=== PATIENT | female | born 1960 | race Hispanic/Latino ===

== ENCOUNTER 2018-04-05 15:04 | Emergency (ER) | payer BC ==
[2018-04-05 15:09] VITALS: RESP 16; TEMP 98.1; O2SAT 99
[2018-04-05] MEDS ORDERED: Oxycodone/Acetaminophen 5/325 mg Tab PO STA (15:36)
[2018-04-05] MEDS ORDERED: Oxycodone/Acetaminophen 5/325 mg Tab ONE (15:55)
--- NOTE | 2018-04-05 15:55 | ED PDOC ---
Lower Extremity Pain/Injury Time Seen by Provider: 04/05/18 15:24 Chief Complaint (Nursing): Lower Extremity Problem/Injury Chief Complaint (Provider): Lower Extremity Problem/ Injury History Per: Patient History/Exam Limitations: no limitations Onset/Duration Of Symptoms: Days (x1) Current Symptoms Are (Timing): Still Present Additional Complaint(s): 58 y/o female with PMHx of Diverticulitis presents to the ED complaining of left knee pain, onset yesterday. Patient reports she was playing tennis and was running when she stopped quickly thus developing immediate pain to the left knee. Patient describes pain is worse on the medial knee. Denies pain in ankle, hip and falls. PMD: Alyce Meyer A - Knee Description Of Injury: Other (Running-stopped quickly) Past Medical History Reviewed: Historical Data, Nursing Documentation, Vital Signs Vital Signs: Last Vital Signs Temp 98.1 F 04/05/18 15:06 Pulse 83 04/05/18 15:06 Resp 16 04/05/18 15:06 BP 147/86 04/05/18 15:06 Pulse Ox 99 04/05/18 15:06 - Medical History PMH: Diverticulitis Denies: Chronic Kidney Disease - Surgical History Surgical History: No Surg Hx - Family History Family History: States: Unknown Family Hx - Immunization History Hx Tetanus Toxoid Vaccination: Yes (2013) Hx Influenza Vaccination: Yes Hx Pneumococcal Vaccination: No - Home Medications Home Medications: Ambulatory Orders Medication Instructions Recorded oxyCODONE/Acetaminophen [Percocet 1 ea PO Q6 #12 tab 04/05/18 5/325 mg Tab] - Allergies Allergies/Adverse Reactions: Allergies Allergy/AdvReac Type Severity Reaction Status Date / Time No Known Allergies Allergy Verified 04/05/18 15:06 Review of Systems ROS Statement: Except As Marked, All Systems Reviewed And Found Negative Musculoskeletal: Positive for: Leg Pain (left knee pain) Physical Exam - Reviewed Nursing Documentation Reviewed: Yes Vital Signs Reviewed: Yes - Physical Exam Appears: Positive for: Well, No Acute Distress Head Exam: Positive for: ATRAUMATIC, NORMAL INSPECTION, NORMOCEPHALIC Skin: Positive for: Normal Color, Warm, Dry Eye Exam: Positive for: Normal appearance, EOMI, PERRL Neck: Positive for: Normal, Painless ROM, Supple Cardiovascular/Chest: Positive for: Regular Rate, Rhythm. Negative for: Murmur Respiratory: Positive for: Normal Breath Sounds. Negative for: Respiratory Distress Extremity: Positive for: Tenderness (to palpation to the medial knee), Other (Popliteal Pulses Intact (2+)). Negative for: Normal ROM (Unable to determine rang od motion or laxity of the knee limited due to pain.), Swelling (no obvious swelling when compared to the right) Neurologic/Psych: Positive for: Alert, Oriented. Negative for: Motor/Sensory Deficits - ECG O2 Sat by Pulse Oximetry: 99 (RA) Pulse Ox Interpretation: Normal Medical Decision Making Medical Decision Making: Time: 15:36 A/P: Workup for knee injury. Most likely ligamentis -- Pain control with Percocets -- XRs -- Reassess patient -- Knee 3 Views LT XR -- Percocet 5/325 mg 1 tab PO Time: 16:28 Knee X-ray FINDINGS: BONES: Normal. No fracture. JOINTS: Normal. No osteoarthritis. SOFT TISSUE: Normal. OTHER FINDINGS: None . IMPRESSION: Normal Bone Xray. update: 17:12 X-ray show no fracture or dislocation. The patient's knee is to be placed in knee immobilizer. Patient is instructed to follow up with orthopedics. Scribe Attestation: Documented by Gabe Pedersen, acting as a scribe for Nicolle Barahona MD. Provider Scribe Attestation: All medical record entries made by the Scribe were at my direction and personally dictated by me. I have reviewed the chart and agree that the record accurately reflects my personal performance of the history, physical exam, medical decision making, and the department course for this patient. I have also personally directed, reviewed, and agree with the discharge instructions and disposition. Disposition - Clinical Impression Clinical Impression: Knee injury - Disposition Referrals: Enedelia Banuelos MD [Staff Provider] - Disposition Time: 17:12 Condition: FAIR Additional Instructions: Use crutches and wear knee immobilizer. Take Tylenol or Motrin for moderate pain. Take Percocet only for severe pain. Do not drive or operate machinery if you are taking Percocet as it may cause dizziness. Follow up with the orthopedic surgeon this week. Return to the emergency department if pain worsens. Prescriptions: oxyCODONE/Acetaminophen [Percocet 5/325 mg Tab] 1 ea PO Q6 #12 tab Forms: [employer] (Swedish) Print Language: BELARUSIAN
--- NOTE | 2018-04-05 16:32 | RAD ---
Date of service: 04/05/2018 HISTORY: medial knee pain COMPARISON: None available. FINDINGS: BONES: Normal. No fracture. JOINTS: Normal. No osteoarthritis. SOFT TISSUE: Normal. OTHER FINDINGS: None . IMPRESSION: Normal Bone Xray.
[2018-04-05 17:49] VITALS: BP 132/84; PULSE 88
== END 2018-04-05 17:50 | disposition home or self-care (01) ==
LOC: H.ER 15:04
DX: S89.92XA Unspecified injury of left lower leg, initial encounter (principal); X50.9XXA Other and unspecified overexertion or strenuous movements or postures, initial encounter; Y92.312 Tennis court as the place of occurrence of the external cause